=== PATIENT | female | born 1960 | race African-American/Black ===

== ENCOUNTER 2018-01-05 18:21 | Emergency (ER) | payer SELFPAY ==
--- NOTE | 2018-01-05 20:43 | ER ---
Nurse's Notes [facility] Name: Farida Cantu Age: 57 yrs Sex: Female : 1960 Arrival Date: 01/05/2018 Time: 18:22 Bed 6 Private MD: Diagnosis: Essential (primary) hypertension Presentation: 01/05 18:33 Presenting complaint: Patient states: High blood pressure today at home. Transition of aj care: patient was not received from another setting of care. Onset of symptoms was January 05, 2018. Risk Assessment: Do you want to hurt yourself or someone else? Patient reports no desire to harm self or others. Initial Sepsis Screen: Does the patient meet any 2 criteria? No. Patient's initial sepsis screen is negative. Does the patient have a suspected source of infection? No. Patient's initial sepsis screen is negative. Care prior to arrival: None. 18:33 Method Of Arrival: Ambulatory aj 18:33 Acuity: ERVIN 2 aj Triage Assessment: 18:34 General: Appears in no apparent distress. comfortable, Behavior is calm, cooperative, aj appropriate for age. Pain: Denies pain. Neuro: Level of Consciousness is awake, alert, obeys commands, Oriented to person, place, time, situation, Appropriate for age Reports headache. Respiratory: Airway is patent Respiratory effort is even, unlabored, Respiratory pattern is regular, symmetrical. Derm: Skin is intact, is healthy with good turgor, Skin is pink, warm \T\ dry. normal. Historical: - Allergies: 18:34 No Known Allergies; aj - Home Meds: 18:34 valsartan-hydrochlorothiazide 160-25 mg oral tab [Active]; aj - PMHx: 18:34 Hypertension; aj - PSHx: 18:34 None; aj - Immunization history:: Adult Immunizations up to date. - Social history:: Smoking status: Patient/guardian denies using tobacco. - Ebola Screening: : Patient negative for fever greater than or equal to 101.5 degrees Fahrenheit, and additional compatible Ebola Virus Disease symptoms Patient denies exposure to infectious person Patient denies travel to an Ebola-affected area in the 21 days before illness onset No symptoms or risks identified at this time. Screenin:16 Abuse screen: Denies threats or abuse. Nutritional screening: No deficits noted. jd3 Tuberculosis screening: No symptoms or risk factors identified. Fall Risk Ambulatory Aid- None/Bed Rest/Nurse Assist (0 pts). Gait- Normal/Bed Rest/Wheelchair (0 pts) Mental Status- Oriented to own ability (0 pts). Total Lynn Fall Scale indicates No Risk (0-24 pts). Assessment: 19:13 General: Appears in no apparent distress. uncomfortable, Behavior is calm, cooperative, jd3 appropriate for age. Pain: Complains of pain in head Quality of pain is described as aching, dull. Neuro: Level of Consciousness is awake, alert, obeys commands, Oriented to person, place, time, situation, Appropriate for age Moves all extremities. Full function Speech is normal, Facial symmetry appears normal, Pupils are PERRLA, Intact. Cardiovascular: Denies chest pain, Capillary refill < 3 seconds Patient's skin is warm and dry. Respiratory: Airway is patent Respiratory effort is even, unlabored, Respiratory pattern is regular, symmetrical, Denies shortness of breath. GI: No signs and/or symptoms were reported involving the gastrointestinal system. Abdomen is round non-distended. : No signs and/or symptoms were reported regarding the genitourinary system. EENT: No signs and/or symptoms were reported regarding the EENT system. Derm: Skin is intact, Skin is dry, Skin is normal, Skin temperature is warm. Musculoskeletal: Circulation, motion, and sensation intact. Range of motion: intact in all extremities. 20:45 Reassessment: Patient appears in no apparent distress at this time. Patient and/or jd3 family updated on plan of care and expected duration. Pain level reassessed. Patient is alert, oriented x 3, equal unlabored respirations, skin warm/dry/pink. 20:55 Reassessment: Patient appears in no apparent distress at this time. Patient and/or jd3 family updated on plan of care and expected duration. Pain level reassessed. Patient is alert, oriented x 3, equal unlabored respirations, skin warm/dry/pink. pt reported understanding of discharge instructions, even and steady gait upon discharge. Vital Signs: 18:34 BP 211 / 107; Pulse 78; Resp 19; Temp 98.1; Pulse Ox 98% on R/A; Weight 82.55 kg; aj Height 5 ft. 7 in. (170.18 cm); 19:17 BP 192 / 113; Pulse 63; Resp 16 S; Pulse Ox 98% on R/A; jd3 19:33 BP 193 / 110; Pulse 65; Resp 16 S; Pulse Ox 99% on R/A; jd3 20:45 BP 157 / 103; Pulse 58; Resp 16 S; Pulse Ox 99% on R/A; jd3 18:34 Body Mass Index 28.50 (82.55 kg, 170.18 cm) ED Course: 18:22 Patient arrived in ED. mr 18:34 Triage completed. aj 18:34 Arm band placed on right wrist. Patient placed in an exam room. aj 18:43 Ronal Marmolejo NP is PHCP. pm1 18:43 Lamberto Cintron MD is Attending Physician. pm1 19:02 Jeremy Land, JESSI is Primary Nurse. jd3 19:16 Patient has correct armband on for positive identification. Bed in low position. Call jd3 light in reach. Side rails up X2. Adult w/ patient. 20:55 No provider procedures requiring assistance completed. Patient did not have IV access jd3 during this emergency room visit. Administered Medications: No medications were administered Outcome: 20:42 Discharge ordered by MD. pm1 20:56 Discharged to home ambulatory, with family. jd3 20:56 Condition: stable 20:56 Discharge instructions given to patient, family, Instructed on discharge instructions, follow up and referral plans. medication usage, Demonstrated understanding of instructions, follow-up care, medications, Prescriptions given X 1. 20:57 Patient left the ED. jd3 Signatures: Jacqueline Chun RN RN aj Babs Woods mr Ronal Marmolejo, LAST REPAIRER HELPER LAST REPAIRER HELPER pm1 Jeremy Land RN RN jd3 Corrections: (The following items were deleted from the chart) 19:17 19:13 Pain: Denies pain. jd3 jd3
--- NOTE | 2018-01-05 20:43 | EDPHYS ---
Physician Documentation [facility] Name: Farida Cantu Age: 57 yrs Sex: Female : 1960 Arrival Date: 01/05/2018 Time: 18:22 Bed 6 Private MD: ED Physician Lamberto Cintron HPI: 01/05 19:00 This 57 yrs old Black Female presents to ER via Ambulatory with complaints of High pm1 Blood Pressure. 19:00 The patient has elevated blood pressure and discovered this at home, with a home pm1 device. Onset: The symptoms/episode began/occurred 3 day(s) ago. Modifying factors: The symptoms are aggravated by nothing, The symptoms are alleviated by nothing. Associated signs and symptoms: Pertinent negatives: chest pain, dizziness, dyspnea, headache, lightheadedness, nausea, vomiting, weakness. The patient has not experienced similar symptoms in the past. The patient has not recently seen a physician, out of town, in Patient here vacationing from another country. Patient currently taking valsartan 160 mg PO once daily for HTN. Patient noticed that her blood pressure has been elevated for the past 3 days. No headache, chest pain, shortness of breath, nausea, vomiting, back pain. Historical: - Allergies: 18:34 No Known Allergies; aj - Home Meds: 18:34 valsartan-hydrochlorothiazide 160-25 mg oral tab [Active]; aj - PMHx: 18:34 Hypertension; aj - PSHx: 18:34 None; aj - Immunization history:: Adult Immunizations up to date. - Social history:: Smoking status: Patient/guardian denies using tobacco. - Ebola Screening: : Patient negative for fever greater than or equal to 101.5 degrees Fahrenheit, and additional compatible Ebola Virus Disease symptoms Patient denies exposure to infectious person Patient denies travel to an Ebola-affected area in the 21 days before illness onset No symptoms or risks identified at this time. ROS: 19:00 Constitutional: Negative for fever, chills, and weight loss, Eyes: Negative for injury, pm1 pain, redness, and discharge, ENT: Negative for injury, pain, and discharge, Neck: Negative for injury, pain, and swelling, Cardiovascular: Negative for chest pain, palpitations, and edema, Respiratory: Negative for shortness of breath, cough, wheezing, and pleuritic chest pain, Abdomen/GI: Negative for abdominal pain, nausea, vomiting, diarrhea, and constipation, Back: Negative for injury and pain, : Negative for injury, bleeding, discharge, and swelling, MS/Extremity: Negative for injury and deformity, Skin: Negative for injury, rash, and discoloration, Neuro: Negative for headache, weakness, numbness, tingling, and seizure. Exam: 19:00 Constitutional: This is a well developed, well nourished patient who is awake, alert, pm1 and in no acute distress. Head/Face: Normocephalic, atraumatic. Eyes: Pupils equal round and reactive to light, extra-ocular motions intact. Lids and lashes normal. Conjunctiva and sclera are non-icteric and not injected. Cornea within normal limits. Periorbital areas with no swelling, redness, or edema. ENT: Nares patent. No nasal discharge, no septal abnormalities noted. Tympanic membranes are normal and external auditory canals are clear. Oropharynx with no redness, swelling, or masses, exudates, or evidence of obstruction, uvula midline. Mucous membranes moist. Neck: Trachea midline, no thyromegaly or masses palpated, and no cervical lymphadenopathy. Supple, full range of motion without nuchal rigidity, or vertebral point tenderness. No Meningismus. Chest/axilla: Normal chest wall appearance and motion. Nontender with no deformity. No lesions are appreciated. Cardiovascular: Regular rate and rhythm with a normal S1 and S2. No gallops, murmurs, or rubs. No pulse deficits. Respiratory: Lungs have equal breath sounds bilaterally, clear to auscultation and percussion. No rales, rhonchi or wheezes noted. No increased work of breathing, no retractions or nasal flaring. Abdomen/GI: Soft, non-tender, with normal bowel sounds. No distension or tympany. No guarding or rebound. No evidence of tenderness throughout. Back: No spinal tenderness. No costovertebral tenderness. Full range of motion. Skin: Warm, dry with normal turgor. Normal color with no rashes, no lesions, and no evidence of cellulitis. MS/ Extremity: Pulses equal, no cyanosis. Neurovascular intact. Full, normal range of motion. 19:00 Neuro: Orientation: is normal, Motor: is normal, moves all fours, Sensation: is normal, no obvious gross deficits, Gait: is steady, at a normal pace, without difficulty. Vital Signs: 18:34 BP 211 / 107; Pulse 78; Resp 19; Temp 98.1; Pulse Ox 98% on R/A; Weight 82.55 kg; aj Height 5 ft. 7 in. (170.18 cm); 19:17 BP 192 / 113; Pulse 63; Resp 16 S; Pulse Ox 98% on R/A; jd3 19:33 BP 193 / 110; Pulse 65; Resp 16 S; Pulse Ox 99% on R/A; jd3 20:45 BP 157 / 103; Pulse 58; Resp 16 S; Pulse Ox 99% on R/A; jd3 18:34 Body Mass Index 28.50 (82.55 kg, 170.18 cm) aj MDM: 18:54 Patient medically screened. pm1 20:42 Data reviewed: vital signs. Data interpreted: Pulse oximetry: on room air is 99 %. pm1 Interpretation: normal. Counseling: I had a detailed discussion with the patient and/or guardian regarding: the historical points, exam findings, and any diagnostic results supporting the discharge/admit diagnosis, the need for outpatient follow up, to return to the emergency department if symptoms worsen or persist or if there are any questions or concerns that arise at home. 20:45 ED course: Instructed patient to continue taking valsartan BID. Patient's blood pm1 pressure improved here with Valsartan 160 mg PO. Instructed patient to follow up with clinic for further blood pressure management. Explained it is possible that she might need another blood pressure medication if max dosage of valsartan insufficient to manage her pressure . Administered Medications: No medications were administered Disposition: 01/05/18 20:42 Discharged to Home. Impression: Essential (primary) hypertension. - Condition is Stable. - Discharge Instructions: Hypertension, How to Take Your Blood Pressure, [id number], DASH Eating Plan, Managing Your Hypertension. - Prescriptions for valsartan 160 mg Oral tablet - take 1 tablet by ORAL route 2 times per day for 15 days; 30 tablet. - Medication Reconciliation Form, Thank You Letter form. - Follow up: Emergency Department; When: As needed; Reason: Worsening of condition. Follow up: Private Physician; When: 2 - 3 days; Reason: Recheck today's complaints, Continuance of care, Re-evaluation by your physician. - Problem is new. - Symptoms have improved. Addendum: 01/07/2018 19:03 Co-signature as Attending Physician, Lamberto Cintron MD. r n Signatures: Jacqueline Chun, RN Lamberto Dasilva MD MD rn Marinas, Patrick, VETERINARY LABORATORY DIAGNOSTICIAN VETERINARY LABORATORY DIAGNOSTICIAN pm1 Jeremy Land RN RN jd3 Corrections: (The following items were deleted from the chart) 01/05 20:57 20:42 01/05/2018 20:42 Discharged to Home. Impression: Essential (primary) jd3 hypertension. Condition is Stable. Forms are Medication Reconciliation Form, Thank You Letter, Antibiotic Education, Prescription Opioid Use. Follow up: Emergency Department; When: As needed; Reason: Worsening of condition. Follow up: Private Physician; When: 2 - 3 days; Reason: Recheck today's complaints, Continuance of care, Re-evaluation by your physician. Problem is new. Symptoms have improved. pm1
== END 2018-01-05 20:57 | disposition home or self-care (01) ==
LOC: ER 18:21
DX: I10 Essential (primary) hypertension (principal)
CPT/HCPCS: 99282